=== PATIENT | male | born 1995 | race Caucasian/White ===

== ENCOUNTER → 2018-07-05 15:25 | Outpatient (CLI) | payer BC, SELFPAY ==
[2018-07-05 16:03] LABS: Basophils % 0.3 % (0.1-2.0); Eosinophils # 0.1 K/mm3 (0.0-0.4); Hematocrit 45.1 % (42.0-52.0); Hemoglobin 14.4 g/dL (14.1-18.0); Lymphocytes % 25.8 K/mm3 (10-50); Mean Corpuscular HGB Conc 31.9 g/dL (31.8-35.4); Mean Corpuscular Hemoglobin 29.3 pg (27.0-31.2); Mean Corpuscular Volume 91.6 fl (80-94); Mean Platelet Volume 7.3 fl (7.4-10.4); Monocytes # 0.6 K/mm3 (0.1-1.0); Monocytes % 5.3 % (1.7-9.3); Neutrophils # 7.8 K/mm3 (1.8-7.8); Neutrophils % 67.6 % (37.0-80.0); Platelet Count 263 K/mm3 (142-424); Red Blood Count 4.92 M/mm3 (4.60-6.20); Red Cell Distribution Width 13.9 % (11.5-17.5); White Blood Count 11.5 K/mm3 (4.8-10.8)
== END ==
PROVIDERS: Visit Provider Otolaryngology
DX: Z01.818 Encounter for other preprocedural examination (principal); S02.2XXA Fracture of nasal bones, initial encounter for closed fracture
CPT/HCPCS: 36415; 85025; 93005

== ENCOUNTER → 2018-07-09 17:54 | Outpatient (CLI) | payer BC, SELFPAY ==
[2018-07-09 19:55] LABS: Alanine Aminotransferase 32 U/L (12-78); Albumin Level 4.4 gm/dL (3.4-5.0); Albumin/Globulin Ratio 1.3 (1.1-1.8); Alkaline Phosphatase 62 U/L (46-116); Aspartate Amino Transferase 22 U/L (15-37); Bilirubin,Total 0.4 mg/dL (0.2-1.0); Blood Urea Nitrogen 12 mg/dL (7-18); Calcium 9.2 mg/dL (8.5-10.1); Carbon Dioxide 29 mmol/L (21.0-32.0); Chloride 102 mmol/L (98-107); Estimated Glomerular Filt Rate 104 ml/min (>60); GFR (African American) 125 ML/MIN (>60); Globulin 3.3 gm/dl (1.3-3.2); Glucose 82 mg/dL (74-106); Sodium 140 mmol/L (136-145); Total Protein,Serum 7.7 gm/dL (6.4-8.2)
== END ==
PROVIDERS: Visit Provider Otolaryngology
DX: S02.2XXA Fracture of nasal bones, initial encounter for closed fracture (principal)
CPT/HCPCS: 36415; 80053

== ENCOUNTER 2020-12-07 11:00 | Emergency (ER) | payer BC, SELFPAY ==
[2020-12-07 11:01] VITALS: BP 155/75; PULSE 89; RESP 18; TEMP 36.8; O2SAT 98; BMI 26.9
--- NOTE | 2020-12-07 11:26 | HMH.EDWNDL ---
ED Disposition Clinical Impression: Laceration of thumb Qualifiers: Encounter type: initial encounter Damage to nail status: without damage Foreign body presence: without foreign body Laterality: right Qualified Code(s): S61.011A - Laceration without foreign body of right thumb without damage to nail, initial encounter Disposition: Home, Self-Care Condition on Discharge: Good Instructions: DI for Laceration Repair Referrals: PCP,No [Primary Care Provider] - - Critical Care Critical Care Time: No Attestation: On 12/07/20, the high probability of a clinically significant, sudden or life threatening deterioration of the following system(s) required my full and direct attention, intervention and personal management. The time I documented below is in addition to time spent performing reported procedures but includes the following listed in this critical care notation. Medical Decision Making - Medical Records Medical records reviewed: Yes: I reviewed the patient's medical records. - Gabriel Inquiry Pt receiving controlled substance: No Vital Signs: 12/07/20 11:01 Temperature 98.3 F Temperature Source Oral Pulse Rate [Left Radial] 89 Respiratory Rate 18 Blood Pressure [Left Arm] 155/75 H Blood Pressure Mean [Left Arm] 101 Blood Pressure Source [Left Arm] Automatic Cuff Blood Pressure Position [Left Arm] Sitting 02 Sat by Pulse Oximetry 98 Oxygen Delivery Method Room Air Orders (Tests/Meds): ED MEDICATIONS Discontinued Medications Generic Name Dose Route Start Last Admin Trade Name Freq PRN Reason Stop Dose Admin Tetanus/Reduced Diphtheria/Acell Pertussis 0.5 ml 12/07/20 11:15 12/07/20 11:22 Tet/Diphth/Pert-Adult 0.5ml Syringe IM 12/07/20 11:16 0.5 ml .ONCE ONE Administration Wound/Laceration HPI - General Chief Complaint: Wound/Laceration Stated Complaint: AO [id number]@1030 cut rt thumb Time Seen by Provider: 12/07/20 11:05 Mode of Arrival: Ambulatory Limitations: No Limitations Description of Symptoms (Recalled from ER Triage Doc. by RN): Laceration to R thumb, pt reports he was closing his pocket knife and cut his finger. - History of Present Illness HPI narrative: 25-year-old male presented to the emergency department with a cut on the distal aspect of his right thumb. Patient states that he was closing his knife when it sliced his finger. He did have some bleeding at the time. Patient is unsure of tetanus status. No other injuries were sustained. No headache or change in vision. No focal weakness. No chest pain or shortness of breath. No abdominal pain or vomiting. - Related Data Home Medications Medication Instructions Recorded Confirmed Buprenorphine HCl/Naloxone HCl 1 each SL DAILY 12/07/20 12/07/20 [Buprenorp-Nalox 8-2 mg Sl Film] Allergies Allergy/AdvReac Type Severity Reaction Status Date / Time erythromycin base Allergy Intermediate Hives Verified 06/14/19 14:32 [From E-Mycin] [facility] History - Hepatitis A Screen Drug use history?: No High risk sexual behaviors?: No History of sexually transmitted infection?: No Currently employed?: No Childcare worker?: No Do you have indoor plumbing?: Yes Do you have electricity?: Yes Attestation statement:: This patient has been screened for Hepatitis A risk factors. I have reviewed the patient's past medical history: Yes Medical History: Reports:: Asthma Denies:: Cancer, Chronic Obstructive Pulmonary Disease (COPD), Diabetes Mellitus Type 1, Diabetes Mellitus Type 2, Internal Pacemaker, MRSA, Seizures Other Medical History: Denies: Blood Transfusion Reaction Laterality Cases: Bilateral: Other Other Surgeries: Yes: Other. No: Pacemaker Amputation: No Fractures: No Comment: Spinal fusion - Social History Smoking Status: Current every day smoker Tobacco Type: smokeless tobacco # Packs/Day (cigarettes): 1 Alcohol Intake: never Alcohol Intake Frequency:: a few times a month (socially drinking
[2020-12-07 12:14] VITALS: BP 118/64; PULSE 62; RESP 20; TEMP 36.8; O2SAT 100
== END 2020-12-07 12:14 | disposition home or self-care (01) ==
PROVIDERS: Emergency Provider Emergency Medicine
DX: S61.011A Laceration without foreign body of right thumb without damage to nail, initial encounter (principal); Z23 Encounter for immunization; J45.909 Unspecified asthma, uncomplicated; F17.290 Nicotine dependence, other tobacco product, uncomplicated; W26.0XXA Contact with knife, initial encounter; Y92.019 Unspecified place in single-family (private) house as the place of occurrence of the external cause
CPT/HCPCS: 12001; 90715; 99282

== ENCOUNTER 2021-01-09 20:56 | Emergency (ER) | payer BC, SELFPAY ==
[2021-01-09 21:36] VITALS: BP 136/82; PULSE 87; RESP 17; TEMP 36.7; O2SAT 98; BMI 29.5
--- NOTE | 2021-01-09 21:42 | XR_ITS ---
PROCEDURE: XR HAND LT MIN 3V CLINICAL INDICATION: neck Pain COMPARISON: No exams were available for comparison FINDINGS: No fracture or dislocation. No lytic or blastic change. There is normal mineralization. The joint spaces are well-preserved. No significant degenerative/arthritic changes. No erosive changes evident. Other findings:None. IMPRESSION: No acute findings. Dictated by: Kwame Cha MD 01/10/2021 06:40 Kwame Cha MD in [place] 01/10/2021 06:40
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
[2021-01-09 21:53] VITALS: BP 136/82; PULSE 85; O2SAT 98
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
[2021-01-09 22:35] VITALS: BP 132/78; PULSE 91; RESP 18; TEMP 37.1; O2SAT 95
== END 2021-01-09 22:42 | disposition home or self-care (01) ==
PROVIDERS: Emergency Provider Emergency Medicine
DX: S60.222A Contusion of left hand, initial encounter (principal); W22.8XXA Striking against or struck by other objects, initial encounter; Y92.73 Farm field as the place of occurrence of the external cause; J45.909 Unspecified asthma, uncomplicated; F17.290 Nicotine dependence, other tobacco product, uncomplicated
CPT/HCPCS: 73090; 73130; 99282